=== PATIENT | male | born 1965 | race Caucasian/White ===

== ENCOUNTER 2020-10-06 05:28 | Inpatient (IN) ==
[2020-10-06] MEDS ORDERED: Perflutren Lipid Microsphere 1.3 ML in 0.9 % Sodium Chloride 8.7 ML IVP PRN (07:20)
[2020-10-06] MEDS ORDERED: Acetaminophen 325 MG TABLET PO PRN (13:11)
[2020-10-06] MEDS: Metoprolol XL (24 HR) Succ 25 MG TAB.ER.24H PO SCH (15:07)
[2020-10-06] MEDS: hydroCHLOROthiazide 25 MG TABLET PO SCH (15:07)
[2020-10-06] MEDS: lisinopriL 10 MG TABLET PO SCH (15:08)
[2020-10-06] MEDS: *HR* Ticagrelor 90 MG TABLET PO SCH (15:09)
[2020-10-07 02:12] LABS: Basophils # 0.1 K/mcL (0.0-0.2); Basophils % 0.8 %; Eosinophils # 0.3 K/mcL (0.0-0.6); Eosinophils % 2.1 %; Hematocrit 43.2 % (37.5-50.1); Hemoglobin 14.5 g/dL (12.9-16.9); Immature Granulocytes % 0.4 % (0-4); Lymphocytes # 2.6 K/mcL (0.6-4.6); Lymphocytes % 21.4 %; Mean Corpuscular HGB Conc 33.6 g/dL (31.6-35.5); Mean Corpuscular Volume 92.5 fL (83.0-100.0); Mean Platelet Volume 10.2 fL (9.4-12.4); Monocytes % 8.3 %; Platelet Count 277 K/mcL (140-400); Red Blood Count 4.67 M/mcL (4.19-5.50); Red Cell Distribution Width 12.5 % (11.5-14.5)
[2020-10-07 02:29] LABS: BUN/Creatinine Ratio 16 (6-26); Blood Urea Nitrogen 13 mg/dL (6-20); Calcium 9.1 mg/dL (8.6-10.3); Carbon Dioxide 23 mEq/L (23-29); Chloride 104 mEq/L (98-107); Glucose 104 mg/dL (70-105); Osmolality,Calculated 284 (280-300); Sodium 137 mEq/L (136-145); eGFR For African Americans > 60 (> 60); eGFR For Non-African Americans > 60 (> 60)
[2020-10-07 02:34] LABS: Troponin I 16.81 ng/mL (< 0.04)
[2020-10-07] MEDS: Levothyroxine 25 MCG TABLET PO SCH (05:52)
[2020-10-07] MEDS: hydroCHLOROthiazide 25 MG TABLET PO SCH (07:59)
[2020-10-07] MEDS: *HR* Ticagrelor 90 MG TABLET PO SCH ×2 (08:00→21:29)
[2020-10-07] MEDS: Metoprolol XL (24 HR) Succ 25 MG TAB.ER.24H PO SCH (08:00)
[2020-10-07] MEDS: lisinopriL 10 MG TABLET PO SCH (08:00)
[2020-10-07] MEDS: Aspirin 81 MG TAB.CHEW PO SCH (08:00)
[2020-10-07] MEDS ORDERED: Metoprolol XL (24 HR) Succ 25 MG TAB.ER.24H PO ONE (11:03)
[2020-10-07] MEDS: Spironolactone 25 MG TABLET PO SCH (11:51)
[2020-10-08] MEDS: Levothyroxine 25 MCG TABLET PO SCH (06:02)
[2020-10-08 07:03] VITALS: BP 119/79
[2020-10-08] MEDS: Spironolactone 25 MG TABLET PO SCH (08:25)
[2020-10-08] MEDS: *HR* Ticagrelor 90 MG TABLET PO SCH (08:25)
[2020-10-08] MEDS: lisinopriL 10 MG TABLET PO SCH (08:25)
[2020-10-08] MEDS: Aspirin 81 MG TAB.CHEW PO SCH (08:25)
[2020-10-08] MEDS ORDERED: Metoprolol XL (24 HR) Succ 50 MG TAB.ER.24H PO SCH (09:00)
== END 2020-10-08 10:28 | disposition home or self-care (01) | DRG 247 ==
LOC: ICNU → 2NNU 10:07
PROVIDERS: ADMIT Internal Medicine Cardiovascular Disease; ATTEND Student in an Organized Health Care Education/Training Program